=== PATIENT | female | born 1990 | race Two or more races ===

== ENCOUNTER 2020-04-14 14:31 | Observation (INO) | payer OTHER ==
[~2020-04-14] VITALS: Ht 160 cm; Wt 60.8 kg
[2020-04-14 18:05] VITALS: BP 96/54
== END 2020-04-14 18:30 | disposition home or self-care (01) ==
LOC: 8 EST LDRP 14:31
PROVIDERS: ADMIT Specialist; ATTEND Specialist
DX: O62.9 Abnormality of forces of labor, unspecified (principal); Z3A.30 30 weeks gestation of pregnancy
CPT/HCPCS: 36415; 76805; 76818; 86886; 90384; 96372; 99281; G0378

== ENCOUNTER 2020-06-27 01:25 | Inpatient (IN) | payer OTHER ==
[~2020-06-27] VITALS: Ht 160 cm; Wt 64.4 kg
[2020-06-27] MEDS: LACTATED RINGERS 1,000 ML IV SCH ×2 (02:45→08:47)
[2020-06-27] MEDS ORDERED: DEXT 5%/LR + PITOCIN 20UNITS/L 1,000 ML IV SCH (03:22)
[2020-06-27] MEDS ORDERED: PNV1TABL76 PO (03:23)
[2020-06-27] MEDS ORDERED: MISOPROSTOL 100MCG TABLET PO SCH (03:30)
[2020-06-27] MEDS ORDERED: CARBOPROST TROMETHAMINE 250 MCG/ML AMPUL IM PRN (03:30)
[2020-06-27] MEDS ORDERED: NALOXONE HCL 0.4 MG/ML 1ML VIAL IM PRN (03:30)
[2020-06-27] MEDS ORDERED: METHYLERGONOVINE MALEATE 0.2 MG/ML IM PRN (03:30)
[2020-06-27] MEDS ORDERED: LIDOCAINE HCL 1% 20ML VIAL (Pyxis) INJ INFIL SCH (03:30)
[2020-06-27] MEDS ORDERED: PENICILLIN G POTASSIUM 5 MMU in DEXT 5% WATER 100 ML IV SCH (04:00)
[2020-06-27 05:05] LABS: BASOPHILS % 0.3 % (0.0-2.0); EOSINOPHILS % 0.5 % (0.0-5.0); HEMATOCRIT. 35.4 % (36.0-48.0); HEMOGLOBIN. 12.2 g/dL (12.0-16.0); LYMPHOCYTES % 23.2 % (20.0-50.0); MEAN CORPUSCULAR HEMOGLOBIN 31.5 pg (28.0-32.0); MEAN CORPUSCULAR VOLUME 91.1 fL (81.0-99.0); MEAN PLATELET VOLUME 8.2 fl (7.4-10.4); MONOCYTES % 7.4 % (2.0-8.0); NEUTROPHILS % 68.6 % (40.0-76.0); PLATELET 219 x1000/uL (130-400); RED BLOOD CELL COUNT 3.88 mill/uL (4.2-5.4); RED CELL DISTRIBUTION WIDTH 12.6 % (11.6-14.6)
[2020-06-27 05:07] LABS: CLARITY URINE CLEAR (CLEAR); COLOR URINE YELLOW (YELLOW); KETONES URINE NEGATIVE (NEGATIVE); LEUKOCYTE ESTERASE URINE 1+ (NEGATIVE); NITRITE URINE NEGATIVE (NEGATIVE); OCCULT BLOOD URINE 1+ (NEGATIVE); PROTEIN URINE NEGATIVE (NEGATIVE); SPECIFIC GRAVITY URINE 1.004 (1.005-1.030); UROBILINOGEN URINE 0.2 E.U./dL (0.2-1.0)
[2020-06-27 05:13] LABS: INR 0.9; PARTIAL THROMBOPLASTIN TIME 33.9 sec (23.4-31.0)
[2020-06-27 05:25] LABS: *AMPHETAMINES SCREEN URINE NEGATIVE (NEGATIVE); *BARBITURATES SCREEN URINE NEGATIVE (NEGATIVE); *BENZODIAZEPINES SCREEN URINE NEGATIVE (NEGATIVE); *COCAINE SCREEN URINE NEGATIVE (NEGATIVE); METHADONE URINE SCREEN NEGATIVE (NEGATIVE)
[2020-06-27 05:26] LABS: CANNABINOID URINE SCREEN NEGATIVE (NEGATIVE); OPIATES URINE SCREEN NEGATIVE (NEGATIVE); PHENCYCLIDINE URINE SCREEN NEGATIVE (NEGATIVE)
[2020-06-27 05:44] LABS: HEPATITIS B SURFACE ANTIGEN NEGATIVE
[2020-06-27] MEDS: PENICILLIN G POTASSIUM 2.5 MMU in DEXTROSE 5% WATER 50 ML IV SCH ×4 (08:48→22:05)
[2020-06-27] MEDS: MISOPROSTOL 100MCG TABLET PO PRN ×4 (08:49→20:48)
[2020-06-27] MEDS ORDERED: LACTATED RINGERS 1,000 ML IV SCH (14:45)
[2020-06-27] MEDS: BUTORPHANOL TARTRATE 2 MG/ML VIAL IV PRN (17:27)
[2020-06-28] MEDS: BUTORPHANOL TARTRATE 2 MG/ML VIAL IV PRN (03:31)
[2020-06-28] MEDS: PENICILLIN G POTASSIUM 2.5 MMU in DEXTROSE 5% WATER 50 ML IV SCH (04:03)
[2020-06-28] MEDS ORDERED: DEXT 5%/LR + PITOCIN 20UNITS/L 1,000 ML IV SCH (05:56)
[2020-06-28] MEDS ORDERED: IBUPROFEN 400MG TABLET PO PRN (06:00)
[2020-06-28] MEDS ORDERED: BENZOCAINE/LANOLIN/ALOE VERA SPRAY TOP PRN (06:00)
[2020-06-28] MEDS ORDERED: DIPHENHYDRAMINE 25MG CAPSULE PO PRN (06:00)
[2020-06-28] MEDS ORDERED: RHO(D) IMMUNE GLOBULIN 300 MCG/SYR IM PRN (06:00)
[2020-06-28] MEDS ORDERED: HEMORRHOIDAL SUPP PR PRN (06:00)
[2020-06-28] MEDS ORDERED: IBUPROFEN 800MG TABLET PO PRN (06:00)
[2020-06-28] MEDS ORDERED: GLYCERIN/WITCH HAZEL LEAF MEDICATED PAD TOP PRN (06:00)
[2020-06-28] MEDS ORDERED: ACETAMINOPHEN WITH CODEINE 300/30MG TABLET PO PRN (06:00)
[2020-06-28] MEDS ORDERED: BISACODYL 10MG SUPP PR PRN (06:00)
[2020-06-28 06:55] VITALS: BP 111/51
[2020-06-28 07:34] VITALS: BP 105/61
[2020-06-28] MEDS: PRENATAL VIT/FE FUMARATE/FA TABLET PO SCH (08:31)
[2020-06-28 19:30] VITALS: BP 106/68
[2020-06-28] MEDS: DOCUSATE SODIUM 100MG CAPSULE PO SCH (22:18)
[2020-06-29 04:00] VITALS: BP 125/83
[2020-06-29 06:40] LABS: BASOPHILS % 0.3 % (0.0-2.0); EOSINOPHILS % 1.1 % (0.0-5.0); HEMATOCRIT. 32.8 % (36.0-48.0); HEMOGLOBIN. 11.4 g/dL (12.0-16.0); LYMPHOCYTES % 25.7 % (20.0-50.0); MEAN CORPUSCULAR HEMOGLOBIN 31.9 pg (28.0-32.0); MEAN CORPUSCULAR VOLUME 91.9 fL (81.0-99.0); MEAN PLATELET VOLUME 8.1 fl (7.4-10.4); MONOCYTES % 6.6 % (2.0-8.0); NEUTROPHILS % 66.3 % (40.0-76.0); PLATELET 220 x1000/uL (130-400); RED BLOOD CELL COUNT 3.57 mill/uL (4.2-5.4); RED CELL DISTRIBUTION WIDTH 12.9 % (11.6-14.6)
[2020-06-29 07:42] VITALS: BP 104/74
[2020-06-29] MEDS: FERROUS SULFATE 325MG TABLET PO SCH ×3 (09:17→17:56)
[2020-06-29] MEDS: PRENATAL VIT/FE FUMARATE/FA TABLET PO SCH (09:17)
[2020-06-29] MEDS ORDERED: IBUP-2030 PO (14:12)
[2020-06-29 19:30] VITALS: BP 110/72
[2020-06-29] MEDS: DOCUSATE SODIUM 100MG CAPSULE PO SCH (21:06)
[2020-06-30 04:00] VITALS: BP 100/71
[2020-06-30 08:30] VITALS: BP 111/78
== END 2020-06-30 14:25 | disposition home or self-care (01) | DRG 560 ==
LOC: OBSVTOIN 01:25 → 8 EST LDRP 01:25 → 8EST 06-28 07:17
PROVIDERS: ADMIT Specialist; ATTEND Specialist
PROC: 3E033VJ Introduction of Other Hormone into Peripheral Vein, Percutaneous Approach (ICD-10-PCS; 2020-06-27)
PROC: 10E0XZZ Delivery of Products of Conception, External Approach (ICD-10-PCS; principal; 2020-06-28)
PROC: 0W8NXZZ Division of Female Perineum, External Approach (ICD-10-PCS; 2020-06-28)
DX: O48.0 Post-term pregnancy (principal); O99.824 Streptococcus B carrier state complicating childbirth; B06.9 Rubella without complication; O98.52 Other viral diseases complicating childbirth; O69.81X0 Labor and delivery complicated by cord around neck, without compression, not applicable or unspecified; O99.03 Anemia complicating the puerperium; Z3A.41 41 weeks gestation of pregnancy; Z37.0 Single live birth
CPT/HCPCS: 36415; 80305; 81003; 85025; 86592; 86703; 86762; 86850; 86870; 86900; 87340; J0595; J2540; J2590; J3490; J7060; J7120